=== PATIENT | female | born 1960 | race Caucasian/White ===

== ENCOUNTER → 2018-06-06 | Outpatient (CLI) | payer SELFPAY ==
--- NOTE | 2018-06-06 09:07 | RAD ---
Complete abdomen ultrasound study Clinical indications: Recurrent hernia. FINDINGS: Sonography of the anterior abdominal wall in the area of clinical concern was performed. No focal hernia is seen sonographically. The gallbladder is normal without gallstones. The extra hepatic bile duct measures 2 mm in caliber which is normal. No focal enlargement of the pancreas is seen. No focal aneurysmal dilatation of the abdominal aorta is seen. The intrahepatic portion of the IVC is unremarkable. There is diffuse attenuation of sound throughout the liver which may be seen with fatty infiltration of the liver. This may decrease the sensitivity of sonography to detect focal hepatic lesions. No focal hepatic mass is seen otherwise. The liver measures 18.1 cm and length which is mildly enlarged. The length of the right kidney is 10.1 cm. The length of left kidney is 11.0 cm. No hydronephrosis or renal mass or perinephric fluid collection is seen on either side. The spleen measures 9 cm in length which is normal. No ascites is evident. IMPRESSION: Hepatomegaly. Fatty infiltration of the liver. Electronically signed by: Marino Perry MD (06/06/2018 9:04 AM) [facility]
== END | disposition home or self-care (01) ==
LOC: US 06:13
PROVIDERS: ATTEND Surgery
DX: K76.0 Fatty (change of) liver, not elsewhere classified (principal); R16.0 Hepatomegaly, not elsewhere classified
CPT/HCPCS: 76700